=== PATIENT | male | born 1995 | race American Indian/Alaskan Native ===

== ENCOUNTER 2019-06-08 12:34 | Emergency (ER) | payer MEDICAID ==
[~2019-06-08] VITALS: Ht 177.8 cm; Wt 72.8 kg
[2019-06-08 13:21] LABS: CLARITY,URINE CLEAR (Clear); COLOR,URINE STRAW (Yellow); GLUCOSE, URINE NEGATIVE (Neg); KETONES,URINE NEGATIVE (Neg); LEUKOCYTE ESTERASE ,URINE NEGATIVE (Neg); NITRITES, URINE NEGATIVE (Neg); OCCULT BLOOD,URINE NEGATIVE (Neg); PROTEIN,URINE NEGATIVE (Neg); UROBILINOGEN,URINE 0.2 E.U/dL (0.2-1.0)
[2019-06-08 13:25] LABS: UA COLLECTION TYPE CLN CATCH MIDSTREAM
[2019-06-08 13:25] LABS: BASOPHILS % (AUTO) 0.2 % (0-1); EOSINOPHILS % (AUTO) 0.5 % (0-6); HEMATOCRIT 47.7 % (42.0-52.0); HEMOGLOBIN 15.7 g/dl (14.0-17.9); LYMPHOCYTES # (AUTO) 1.9 X10'3 (1.1-4.8); MEAN CORPUSCULAR HEMOGLOBIN 27.1 PG (27.0-31.0); MEAN CORPUSCULAR VOLUME 82.1 FL (78-98); MONOCYTES # (AUTO) 0.9 X10'3 (0-0.9); MONOCYTES % (AUTO) 11.8 % (2-12); NEUTROPHILS # (AUTO) 5.2 X10'3 (1.8-7.7); NEUTROPHILS % (AUTO) 64.5 % (42-75); PLATELET COUNT 221 X10'3 (140-440); RED CELL DISTRIBUTION WIDTH 13.6 % (11.5-14.5)
[2019-06-08 13:33] LABS: URINE AMPHETAMINE SCREEN POSITIVE (Neg); URINE BARBITUATE SCREEN NEGATIVE (Neg); URINE BENZODIAZEPINES SCREEN NEGATIVE (Neg); URINE CANNABINOID SCREEN NEGATIVE (Neg); URINE COCAINE SCREEN NEGATIVE (Neg); URINE METHADONE SCREEN NEGATIVE (Neg); URINE OPIATE SCREEN NEGATIVE (Neg); URINE PHENCYCLIDINE SCREEN NEGATIVE (Neg)
[2019-06-08 13:42] LABS: ALANINE AMINOTRANSFERASE 69 U/L (12-78); ALBUMIN 4.2 G/DL (3.4-5.0); ALBUMIN/GLOBULIN RATIO 1.1 (1.1-1.5); ALKALINE PHOSPHATASE 90 IU/L (46-116); ANION GAP 5 (8-16); ASPARTATE AMINO TRANSFERASE 39 U/L (10-37); BILIRUBIN,TOTAL 0.4 MG/DL (0.1-1.0); BLOOD UREA NITROGEN 7 MG/DL (7-18); BUN/CREATININE RATIO 6.4 (5.4-32.0); CALCIUM 9.3 MG/DL (8.5-10.1); CHLORIDE 101 MMOL/L (99-107); CREATININE 1.09 MG/DL (0.60-1.10); GLUCOSE 104 MG/DL (70-104); POTASSIUM 3.8 MMOL/L (3.5-5.1); SODIUM 138 MMOL/L (135-145); TOTAL CARBON DIOXIDE 32.5 MMOL/L (24-32); eGFR 82 ML/MIN
[2019-06-08 13:52] LABS: ETHANOL < 0.010 GM/DL (0.0-0.010)
--- NOTE | 2019-06-08 15:39 | NUR ---
MATEO is here talking with pt.
--- NOTE | 2019-06-08 16:25 | NUR ---
PT AMB WITH STEADY GAIT TO OVERFLOW
--- NOTE | 2019-06-08 17:24 | NUR ---
PT IS RESTING QUIELTLY ON [facility]
--- NOTE | 2019-06-08 18:36 | NUR ---
Assumed care of patient, pt. laying at this time, rr even and unlabored.
--- NOTE | 2019-06-08 19:59 | NUR ---
Client to be admitted to [facility] for suicidal ideation per Dr. Marybeth Kincaid.
--- NOTE | 2019-06-08 20:30 | NUR ---
1:1 completed with pt. at beside, pt. is calm and cooperative with assessment. He currently denies any S/I, states, "I said that earlier to get resources and help here. I don't know if that was the smartest." Pt. admits that he just moved here from [place], [place] and does not have any family here. He denies any A/V/ESPINOZA or paranoid delusions. Pt. has been staying in hotels. He talks with rapid speech that is difficult to understand at times.
[2019-06-08] MEDS ORDERED: loperamide 2mg capsule PO PRN (21:25)
[2019-06-08] MEDS ORDERED: acetaminophen 325mg tablet PO PRN ×2 (21:25)
[2019-06-08] MEDS ORDERED: LORazepam 1 MG tablet PO PRN (21:25)
[2019-06-08] MEDS ORDERED: hydrOXYzine 25 MG tablet PO PRN (21:25)
[2019-06-08] MEDS ORDERED: magnesium hydroxide 30ml (MOM) UD suspension PO PRN (21:30)
[2019-06-08] MEDS ORDERED: mag hydrox/Alum hydrox/simeth 30ml oral suspension PO PRN (21:30)
--- NOTE | 2019-06-08 21:50 | NUR ---
Pt. being discharged to [facility] at this time, accompanied by security and tech. Pt. has his belongings and is calm and cooperative with process.
--- NOTE | 2019-06-08 22:25 | NUR ---
ADMIT NOTE: LEGAL HOLD: 5150 for DTS Client arrived on unit at 22:00 from ED Overflow. He was accompanied by Rigoberto Booker and . Client presented to ED reporting thoughts of suicide for one month. He has a history of Bipolar DO. Client stated to ED MD, "I'm thinking about doing it the same way my dad did." Clients father committed suicide by carbon monoxide poisoning when he was around the clients age. Client is from [place], [place] and was on his way to [place] when he presented to the ED. Client reports that he "travels a lot". He reports that he has not taken meds for two years. Upon arriving on the unit the client showered, a set of vital signs were obtained, a physical and skin assessment were done, and his personal belongings were inventoried. Throughout admission the client was pleasant and cooperative. Client tends to look down and speaks quietly. Affect and mood are depressed.
--- NOTE | 2019-06-08 22:49 | NUR ---
Client was uncomfortable with undressing for skin assessment. He expressed discomfort with having a roommate. The client was moved to [address].
[2019-06-08 22:58] VITALS: BP 161/92
[2019-06-09] MEDS ORDERED: NO HOME MEDS (11:30)
[2019-06-11] MEDS ORDERED: LITH300C PO (14:29)
[2019-06-11] MEDS ORDERED: TRAZ-251 PO (14:29)
== END 2019-06-08 21:53 ==
LOC: ER 12:34 → UNDOADMIN 20:00 → ADULT MH 20:00 → UNDODISIN 23:28
DX: F31.9 Bipolar disorder, unspecified (principal); F15.10 Other stimulant abuse, uncomplicated; R44.3 Hallucinations, unspecified; F12.90 Cannabis use, unspecified, uncomplicated; F17.200 Nicotine dependence, unspecified, uncomplicated; Z59.0 Homelessness; Z56.0 Unemployment, unspecified
CPT/HCPCS: 36415; 80053; 80305; 80320; 81003; 84443; 85025; 99285

== ENCOUNTER 2019-06-19 06:13 | Emergency (ER) | payer MEDICAID ==
[~2019-06-19] VITALS: Ht 175.3 cm; Wt 75.0 kg
[~2019-06-19 06:13] MED LIST: LITH300C PO; TRAZ-251 PO
[2019-06-19 07:23] LABS: BASOPHILS % (AUTO) 0.3 % (0-1); EOSINOPHILS # (AUTO) 0.1 X10'3 (0-0.9); EOSINOPHILS % (AUTO) 1.3 % (0-6); HEMATOCRIT 46.8 % (42.0-52.0); HEMOGLOBIN 15.6 g/dl (14.0-17.9); LYMPHOCYTES # (AUTO) 1.8 X10'3 (1.1-4.8); LYMPHOCYTES % (AUTO) 25.4 % (21-51); MEAN CORPUSCULAR HEMOGLOBIN 27.2 PG (27.0-31.0); MEAN CORPUSCULAR HGB CONC 33.3 g/dL (33.0-36.5); MEAN CORPUSCULAR VOLUME 81.6 FL (78-98); MONOCYTES % (AUTO) 13.8 % (2-12); NEUTROPHILS # (AUTO) 4.1 X10'3 (1.8-7.7); NEUTROPHILS % (AUTO) 59.2 % (42-75); PLATELET COUNT 231 X10'3 (140-440); RED BLOOD COUNT 5.74 X10'6 (4.70-6.10); RED CELL DISTRIBUTION WIDTH 13.7 % (11.5-14.5)
[2019-06-19 07:34] LABS: ALANINE AMINOTRANSFERASE 43 U/L (12-78); ALBUMIN/GLOBULIN RATIO 1.1 (1.1-1.5); ALKALINE PHOSPHATASE 118 IU/L (46-116); ANION GAP 5 (8-16); ASPARTATE AMINO TRANSFERASE 46 U/L (10-37); BILIRUBIN,TOTAL 0.6 MG/DL (0.1-1.0); BLOOD UREA NITROGEN 8 MG/DL (7-18); CALCIUM 9.3 MG/DL (8.5-10.1); CHLORIDE 101 MMOL/L (99-107); CREATININE 1.14 MG/DL (0.60-1.10); ETHANOL < 0.010 GM/DL (0.0-0.010); GLUCOSE 110 MG/DL (70-104); POTASSIUM 3.4 MMOL/L (3.5-5.1); SODIUM 138 MMOL/L (135-145); TOTAL CARBON DIOXIDE 32.3 MMOL/L (24-32); TOTAL PROTEIN 7.8 G/DL (6.4-8.2); eGFR 78 ML/MIN
[2019-06-19 07:55] VITALS: BP 136/81
[2019-06-19 08:39] LABS: URINE AMPHETAMINE SCREEN POSITIVE (Neg); URINE BARBITUATE SCREEN NEGATIVE (Neg); URINE BENZODIAZEPINES SCREEN NEGATIVE (Neg); URINE CANNABINOID SCREEN NEGATIVE (Neg); URINE COCAINE SCREEN NEGATIVE (Neg); URINE METHADONE SCREEN NEGATIVE (Neg); URINE OPIATE SCREEN NEGATIVE (Neg); URINE PHENCYCLIDINE SCREEN NEGATIVE (Neg)
--- NOTE | 2019-06-19 10:30 | NUR ---
Patient arrives to the unit ambulating self. No distress observed. Patient is changed in to [facility] scrubs. All items inventoried and stored. Patient reports SI with no plan. He states that he recently came to this area from [place], to "get away from it all and start fresh". He exhibits pressured speech and states that he last used meth yesterday. He states, "it is everywhere and I am homeless so I do it. I am sad that I do not know anyone". He also reprots that he "travels a lot". He denies HI and A/VH and does not appear to be responding to internal stimuli. He reports that he is suicidal but also reports that he is afraid to get "harper". Patient is currently resting in bed peacefully on right side. Denies needs or complaints at this time.
--- NOTE | 2019-06-19 10:38 | NUR ---
Report given to Judie in preparation of pt transfer to [facility] who will escorted by a PCT.
--- NOTE | 2019-06-19 11:14 | NUR ---
Registration at bedside having patientn sign paperwork. Patient continues to have pressured speech that is mumbled at times. He uses animatied hand gestures while talking and appears to have difficulty sittign or standing still. $222.40 given to registration for safe keeping.
--- NOTE | 2019-06-19 12:00 | NUR ---
PACKET FAXED TO [facility]
--- NOTE | 2019-06-19 14:22 | NUR ---
Sual is at bedside assessing patient. No distress observed.
--- NOTE | 2019-06-19 14:34 | NUR ---
Per MATEO Hughes, patient will not be held on a 5150 as he does not currently have A/VH, SI or HI. He also is not currently gravely disabled.
--- NOTE | 2019-06-19 15:30 | NUR ---
Patient discharged from the unit ambulating self. All items and valuables inventoried and in patient's possession at time of discharge. No distress observed. [facility] treatment information and doscharge plan discussed with patient. Questions were answered and patient verbalized understanding. Patient denies SI, HI, A/VH. Patient states, " I am not really suicidal, I just am homeless and drugs are all around and I am not really sure if i should stay here or go somewhere else."
== END 2019-06-19 15:30 ==
LOC: ER 06:13
DX: R45.851 Suicidal ideations (principal); F31.9 Bipolar disorder, unspecified; F12.90 Cannabis use, unspecified, uncomplicated; F15.90 Other stimulant use, unspecified, uncomplicated; Z56.0 Unemployment, unspecified; Z72.89 Other problems related to lifestyle; Z60.2 Problems related to living alone; Z59.0 Homelessness
CPT/HCPCS: 36415; 80053; 80305; 80320; 85025; 99285